=== PATIENT | female | born 1960 | race Caucasian/White ===

== ENCOUNTER → 2024-07-22 10:11 | Outpatient (REF) | payer OTHER, SELFPAY | LOC: HWRAD 10:11 | PROVIDERS: ATTENDING PHYSICIAN Student in an Organized Health Care Education/Training Program; FAMILY PHYSICIAN Physician Assistant Medical | DX: M25.549 Pain in joints of unspecified hand (principal); M25.579 Pain in unspecified ankle and joints of unspecified foot | CPT/HCPCS: 73130; 73630 ==

== ENCOUNTER → 2024-09-23 07:55 | Outpatient (REF) | payer OTHER, SELFPAY | LOC: HWRAD 07:55 | PROVIDERS: ATTENDING PHYSICIAN Student in an Organized Health Care Education/Training Program; FAMILY PHYSICIAN Physician Assistant Medical | DX: M81.0 Age-related osteoporosis without current pathological fracture (principal) | CPT/HCPCS: 77080; 77081 ==

== ENCOUNTER → 2024-09-28 08:59 | Outpatient (REF) | payer OTHER, SELFPAY | LOC: HWWDC 08:59 | PROVIDERS: ATTENDING PHYSICIAN Physician Assistant Medical | DX: Z12.31 Encounter for screening mammogram for malignant neoplasm of breast (principal) | CPT/HCPCS: 77063; 77067 ==

== ENCOUNTER → 2025-03-13 06:39 | Outpatient (REF) | payer OTHER, SELFPAY | LOC: HWRAD 06:39 | PROVIDERS: ATTENDING PHYSICIAN Student in an Organized Health Care Education/Training Program; FAMILY PHYSICIAN Physician Assistant Medical | DX: M81.0 Age-related osteoporosis without current pathological fracture (principal); M79.661 Pain in right lower leg | CPT/HCPCS: 72072; 72110; 73523; 73560 ==

== ENCOUNTER → 2025-06-14 08:02 | Outpatient (REF) | payer OTHER, SELFPAY | LOC: RAD 08:02 | PROVIDERS: ATTENDING PHYSICIAN Internal Medicine Rheumatology; FAMILY PHYSICIAN Physician Assistant Medical | DX: M06.00 Rheumatoid arthritis without rheumatoid factor, unspecified site (principal); M25.541 Pain in joints of right hand; M25.542 Pain in joints of left hand; M25.351 Other instability, right hip; M25.352 Other instability, left hip | CPT/HCPCS: 76882 ==